=== PATIENT | female | born 1975 | race Two or more races ===

== ENCOUNTER 2020-12-07 06:00 | Day surgery (SDC) | payer OTHER ==
[2020-12-07] MEDS ORDERED: DUI500 PO (12:03)
[2020-12-07] MEDS ORDERED: ULTRACET PO (12:03)
[2020-12-07] MEDS ORDERED: ASA325 MG PO (12:03)
== END 2020-12-07 16:00 | disposition home or self-care (01) ==
LOC: CIR.AMB 06:00
PROVIDERS: ATTEND Orthopaedic Surgery
DX: S83.231A Complex tear of medial meniscus, current injury, right knee, initial encounter (principal); S83.271A Complex tear of lateral meniscus, current injury, right knee, initial encounter; M22.41 Chondromalacia patellae, right knee; M65.861 Other synovitis and tenosynovitis, right lower leg; Z20.822 Contact with and (suspected) exposure to COVID-19

== ENCOUNTER 2024-11-16 07:15 | Inpatient (IN) | payer OTHER ==
[~2024-11-16] VITALS: Ht 167.6 cm; Wt 907.2 kg
[~2024-11-16 07:15] MED LIST: ASA325 MG PO; DUI500 PO; ULTRACET PO
[2024-11-19] MEDS ORDERED: COZAAR100 MG PO (08:34)
[2024-11-23] MEDS ORDERED: CEFAZOLIN SODIUM 1,000 MG VIAL ONE ×2 (11:17→17:24)
[2024-11-23] MEDS ORDERED: TRANEXAMIC ACID 100MG/1ML (1000MG) AMPUL IV ONE (11:17)
[2024-11-23] MEDS ORDERED: KETOROLAC TROMETHAMINE 60 MG VIAL IM ONE (11:39)
[2024-11-23] MEDS ORDERED: POVIDONE-IODINE 118 ML BOTT TOP ONE (11:39)
[2024-11-23] MEDS ORDERED: VANCOMYCIN HCL 1,000 MG VIAL ONE (11:40)
[2024-11-23] MEDS ORDERED: MORPHINE SULFATE 4 MG/ML VIAL IV ONE (12:45)
[2024-11-23] MEDS ORDERED: MORPHINE SULFATE 4 MG/ML CARTRIDGE IV PRN (13:30)
[2024-11-23] MEDS ORDERED: ONDANSETRON HCL 2 MG/ML VIAL IV PRN (13:30)
[2024-11-23] MEDS ORDERED: OxyCODONE HCL 5 MG TABLET (ROXICODONE) PO PRN (13:30)
[2024-11-23] MEDS ORDERED: SODIUM CHLORIDE 0.45 % 1,000 ML IV SCH (13:30)
[2024-11-23] MEDS ORDERED: GABAPENTIN 300 MG CAPSULE PO SCH (17:00)
[2024-11-23] MEDS ORDERED: CEFAZOLIN SODIUM 1,000 MG VIAL IV SCH (17:00)
[2024-11-23] MEDS ORDERED: ACETAMINOPHEN 500 MG GEL..CAP PO SCH (18:00)
[2024-11-23 21:26] VITALS: BP 148/78; O2SAT 97
[2024-11-24 00:57] VITALS: BP 138/85; O2SAT 96
[2024-11-24] MEDS ORDERED: DUI500 PO (07:40)
[2024-11-24] MEDS ORDERED: PERCOCET 5-3251 EACH PO (07:40)
[2024-11-24] MEDS ORDERED: ELIQUIS2.5 MG PO (07:40)
[2024-11-24 08:03] LABS: HEMATOCRIT 36.5 % (36.0-45.00); HEMOGLOBIN 12.5 g/dL (12.0-15.00); MEAN CELL VOLUME 93.6 fL (80.00-100.00); MEAN CORPUSCULAR HGB CONC 34.2 g/dl (32.0-36.0); PLATELET COUNT 189 K/uL (150-450); RED BLOOD COUNT 3.89 M/uL (4.00-6.00); RED CELL DISTRIBUTION WIDTH 14.2 % (11.5-14.5)
[2024-11-24] MEDS ORDERED: SENNOSIDES 1 TAB TABLET PO SCH (09:00)
[2024-11-24] MEDS ORDERED: APIXABAN 2.5 MG TABLET PO SCH (09:00)
[2024-11-24 14:24] LABS: COVID-19 AG NEGATIVE (NEGATIVE)
[2024-11-24 14:46] LABS: ALBUMIN 2.9 gm/dL (3.4-5.0); BILIRUBIN TOTAL 0.3 mg/dL (0.3-1.2); CALCIUM 8.1 mg/dL (8.5-10.1); CREATININE SERUM 0.95 mg/dL (0.55-1.02); GFR 62.52; GLOBULINA 2.9 G/DL (2.4-3.5); POTASSIUM 4.13 mEq/L (3.5-5.1); TOTAL PROTEIN 5.8 gm/dL (6.4-8.2)
[2024-11-24 14:56] VITALS: BP 111/66; O2SAT 95
[2024-11-24 16:00] VITALS: BP 170/83; O2SAT 100
[2024-11-25 01:29] VITALS: BP 149/80; O2SAT 100
[2024-11-25 08:00] VITALS: BP 142/78; O2SAT 97
[2024-11-25 08:20] LABS: HEMOGLOBIN 12.2 g/dL (12.0-15.00); MEAN CELL VOLUME 94.8 fL (80.00-100.00); MEAN CORPUSCULAR HGB CONC 33.8 g/dl (32.0-36.0); PLATELET COUNT 214 K/uL (150-450); RED CELL DISTRIBUTION WIDTH 14.1 % (11.5-14.5)
[2024-11-25] MEDS ORDERED: IRON FUM,PS/FOLIC ACID/VITC/B3 1 CAP CAPSULE PO SCH (09:00)
[2024-11-25 14:50] VITALS: BP 133/79; O2SAT 98
[2024-11-25 16:00] VITALS: BP 148/73; O2SAT 100
[2024-11-25] MEDS ORDERED: OxyCODONE HCL 5 MG TABLET (ROXICODONE) PO PRN (20:15)
[2024-11-26 01:01] VITALS: BP 146/73; O2SAT 99
[2024-11-26 08:00] VITALS: BP 138/80; O2SAT 97
== END 2024-11-26 12:57 | DRG 470 ==
LOC: SURH 11-23 06:13 → O/R 11-23 06:13 → SURH 11-23 07:15 → O/R 11-23 14:47 → SURH 11-23 18:38
PROVIDERS: ADMIT Orthopaedic Surgery; ATTEND Orthopaedic Surgery
PROC: 0YUF0KZ Supplement Right Knee Region with Nonautologous Tissue Substitute, Open Approach (ICD-10-PCS; 2024-11-23)
PROC: 0SRC0J9 Replacement of Right Knee Joint with Synthetic Substitute, Cemented, Open Approach (ICD-10-PCS; principal; 2024-11-23 14:00)
DX: M17.11 Unilateral primary osteoarthritis, right knee (principal); M22.11 Recurrent subluxation of patella, right knee; I10 Essential (primary) hypertension